=== PATIENT | male | born 1960 | race Caucasian/White ===

== ENCOUNTER 2022-05-07 08:56 | Outpatient (CLI) | payer OTHER, SELFPAY ==
--- NOTE | 2022-05-07 09:15 | CRLHL7_ITS ---
For Patients: As a result of the Cures Act, medical imaging exams and procedure reports are released immediately into your electronic medical record. You may view this report before your referring provider. If you have questions, please contact your health care provider. Indication: Reflux Technique: Esophagram Comparison: No comparison Findings: Patient was given thin and thick barium with effervescent granules which were followed fluoroscopically. Hypopharynx is clear. Esophagus appears normal. No mass lesion no stricturing. No hiatal hernia seen. Impression: Unremarkable esophagram. 25 seconds fluoro time 8 images obtained. Dictated by Elizabeth Scott MD @ 05/07/2022 10:13:28 AM (Electronically Signed)
== END 2022-05-07 08:57 | disposition home or self-care (01) ==
LOC: RAD 08:57
PROVIDERS: PCP Family Medicine; Visit Provider Internal Medicine Gastroenterology
DX: K21.9 Gastro-esophageal reflux disease without esophagitis (principal)
CPT/HCPCS: 74221

== ENCOUNTER 2022-05-23 08:00 | Outpatient (CLI) | payer OTHER, SELFPAY | END 2022-05-23 08:01 | disposition home or self-care (01) | LOC: NFLDREF 05-24 03:46 | PROVIDERS: PCP Family Medicine; Referring Provider Family Medicine; Visit Provider Family Medicine | DX: E78.5 Hyperlipidemia, unspecified (principal); Z12.5 Encounter for screening for malignant neoplasm of prostate | CPT/HCPCS: 80053; 80061; 84153 ==

== ENCOUNTER 2022-07-14 10:13 | Outpatient (CLI) | payer OTHER, SELFPAY ==
--- NOTE | 2022-07-14 11:07 | W.ANESCHARGE ---
Anesthesia Charges Start Date/Time Anesthesia Start Date: 07/14/22 Anesthesia Start Time: 10:52 Stop Date/Time Anesthesia Stop Date: 07/14/22 Anesthesia Stop Time: 11:10
--- NOTE | 2022-07-14 11:13 | W.ANESCHARGE ---
Anesthesia Charges Start Date/Time Anesthesia Start Date: 07/14/22 Anesthesia Start Time: 10:52 Stop Date/Time Anesthesia Stop Date: 07/14/22 Anesthesia Stop Time: 11:10
== END 2022-07-14 10:14 | disposition home or self-care (01) ==
LOC: OP CLINIC 10:14
PROVIDERS: PCP Family Medicine; Visit Provider Internal Medicine Gastroenterology
DX: J04.0 Acute laryngitis (principal); K31.89 Other diseases of stomach and duodenum; K21.9 Gastro-esophageal reflux disease without esophagitis; J02.9 Acute pharyngitis, unspecified
CPT/HCPCS: 00731; 43239; 88305; J2704

== ENCOUNTER 2023-06-01 08:05 | Outpatient (CLI) | payer OTHER, SELFPAY ==
--- OUTSIDE RECORDS SUMMARY | 2023-06-03 11:38 | XMS_ITS | Clinical Summary ---
Author Name Unknown Organization [facility] Address [address] [place] [address] Care Team Providers Care Communication Professor Name Role Phone Unavailable Primary Care Provider Unavailabl e Source Comments You are receiving this document as you are listed as the primary care provider,follow-up provider, or the patient has been referred to you for consultation.This is in compliance with the Medicare and[facility] Hospital[facility] EHR Incentive Program,which states Providers who transition their patient to another setting of careor provider of care or refers their patient to another provider of care shouldprovide summary care record for each transition of care or referral. [facility] Allergies No known active allergies Medications Medication Sig Dispensed Refills Start Date End Date Status atorvastatin (LIPITOR) 20 MG tablet Take 1 Tablet (20 mg) by mouth daily. 09/03/2022 Active sertraline (ZOLOFT) 100 MG tablet Take 1.5 Tablets (150 mg) by mouth daily. 11/03/2022 Active Melatonin 10 MG TABS Take 1 Tablet (10 mg) by mouth daily at bedtime. Active diphenhydrAMINE (BENADRYL) 25 MG capsule Take 1 Capsule (25 mg) by mouth at bedtime as needed for Sleep. Active carbidopa-levodop a (SINEMETCR) 50-200 MG controlled release tablet Take 1 Tablet by mouth daily at bedtime. 90 Tablet 3 05/11/2023 Active carbidopa-levodop a (SINEMET) 25-100 MG tablet Take 2 Tablets by mouth three times a day. 7a-12p-5p 540 Tablet 3 05/11/2023 Active carbidopa-levodop a (SINEMET) 25-100 MG tablet Take 2 Tablets by mouth three times a day. --05/11/2023 Discontinued (*Med change OR same med OR reorder, new dose/directi ons) carbidopa-levodop a (SINEMETCR) 50-200 MG controlled release tablet Take 1 Tablet by mouth daily at bedtime. 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 Encounters Date Type Department Care Team Description 05/11/2023 Refill [facility] [address] [place] [id number] Chary De Leon, RN Refill 04/22/2023 Notes/Orders [facility] [address] [place] [id number] Bethany Lujan, PT 03/25/2023 10:00 AM ENVIRONMENTAL QUALITY ANALYST Therapy [facility] [address] [place] [id number] Bethany Lujan, PT Parkinson's disease, unspecified whether dyskinesia present, unspecified whether manifestations fluctuate (Primary Dx); Hypokinesia; Abnormal posture from Last 3 Months Social History Tobacco Use Types Packs/Day Years Used Date Smoking Tobacco: Never Assessed Sex and Gender Information Value Date Recorded Sex Assigned at Not on file Gender Identity Not on file Sexual Orientation Not on file Last Filed Vital Signs Vital Sign Reading Time Taken Comments Blood Pressure 117/72 11/11/2022 3:13 PM CDT Pulse 67 11/11/2022 3:13 PM CDT Temperature - - Respiratory Rate - - Oxygen Saturation - - Inhaled Oxygen Concentration - - Weight 69.1 kg (152 lb 4.8 oz) 11/11/2022 3:10 P M CDT shoes on Height - - Body Mass Index - - Plan of Treatment Upcoming Encounters Date Type Department Care Team (Late st Contact Info) Description 06/09/2023 10:00 AM CDT Appointment [facility] [address] [place] [address] [place] [address] Bethany Lujan, PT [address] [place] [address] [place] [address] 12/10/2023 8:00 AM CDT Appointment [facility] [address] [place] [address] Vladimir Buckley MD [address] [place] [address] Health Maintenance Due Date Last Done Comments Colon Cancer Screening Plan Due 1960 Hep C Screening (Preventive Services) 1960 PSA Screening Discussion 1960 HIV Screening (Preventive Services) 1978 Adult Preventive Visit 1980 Cholesterol 1997 Zoster/Shingles (2 of 2) 01/30/2020 12/05/2019 COVID-19 Vaccine ( season) 2022 10/20/2021, 05/26/2021, 12/23/2020, Additional history exists Influenza (#1) 2022 12/02/2021, 10/11, 11/24/2019, Additional history exists DTaP/Tdap/Td (7 - Tdap) 07/18/2026 07/19/19 17, 11/20/1999, 07/24/1975, Additional history exists IPV (Polio) Completed 12/13/1976, 09/10, 07/24/1975, Additional history exists HepA Aged Out 08/17/2007 No longer eligi ble based on patient's age to complete this topic Pneumococcal Aged Out 12/28/2014, 11/23/1995 No lo nger eligible based on patient's age to complete this topic HepB Aged Out No longer eligi ble based on patient's age to complete this topic Hib Aged Out No longer eligi ble based on patient's age to complete this topic MCV4 Aged Out No longer eligi ble based on patient's age to complete this topic
--- OUTSIDE RECORDS SUMMARY | 2023-06-03 11:38 | XMS_ITS | Clinical Summary ---
Author Name Unknown Organization [facility] Address [place], [place] [address] Care Team Providers Care Ballistics Teacher Name Role Phone Scott Stokes MD Primary Care Provider [phone] Allergies No known active allergies Medications Medication Sig Dispensed Refills Start Date End Date Status atorvastatin (LIPITOR) 20 mg tablet Take 20 mg by mouth at bedtime. 02/04/2022 Active carbidopa-levodopa, 25-100 mg, (SINEMET 25-100) 25-100 mg tablet TAKE 3 TABLETS BY MOUTH THREE TIMES DAILY 12/29/2021 Active melatonin 5 mg tab tablet Take 10 mg by mouth. Active famotidine (PEPCID) 20 mg tablet Take 1 Tablet (20 mg) by mouth two times daily. 0 04/30/2022 Active Active Problems Problem Noted Date Diagnosed Date Routine adult health maintenance 07/20/2013 Overview: Colonoscopy 07/2013 normal repeat in 10 years Immunizations Name Administration Dates Next Due DTP 09/16/1967,04/27/1964 DTaP 07/24/1975,09/20/1971 Hepatitis A (Adult) 08/17/2007 Inactivated Polio Vaccine 12/13/1976,,07/24/1975,1971,09/16/1967,07/21/1963 Influenza, IIV3 (Age >=3 years) 11/17/2006,11/29,11/23/1995 MMR 05/15/1976,07/22/1972 Pneumococcal Poly,23-Valent (Pneumovax) 11/23/1995 Td (Age >=7 Years) 11/20/1999 Tuberculin (PPD) 12/01/1989,01/12/1967 Family History Medical History Relation Name Comments Cancer-prostate Father Diabetes Maternal Grandfather Heart Disease Maternal Grandfather Relation Name Status Comments Father Maternal Grandfather Social History Tobacco Use Types Packs/Day Years Used Date Smoking Tobacco: Former Tobacco Cessation:Counseling Given: Yes Alcohol Use Standard Drinks/Week Comments Yes 1.7 (1 standard drink = 0.6 oz p ure alcohol) 1 glass wine daily Social Connections Answer Date Recorded Frequency of Communication with Friends and Fami ly Not on file 04/30/2022 Sex and Gender Information Value Date Recorded Sex Assigned at Not on file Gender Identity Not on file Sexual Orientation Not on file Obstetrics History Last Filed Vital Signs Vital Sign Reading Time Taken Comments Blood Pressure 136/88 04/30/2022 1:41 PM CDT Pulse 86 04/30/2022 1:41 PM CDT Temperature 36.8 ??C (98.3 ??F) 11/24/2006 1:35 PM CD T Respiratory Rate - - Oxygen Saturation 98% 04/30/2022 1:41 PM CDT Inhaled Oxygen Concentration - - Weight 67.6 kg (149 lb) 04/30/2022 1:41 PM CDT Height 175.3 cm (5' 9) 11/24/2006 1:35 PM CDT Body Mass Index - - Plan of Treatment Health Maintenance Due Date Last Done Comments Tdap 1973 Depression screening for age 12+ 1974 HIV for age 15-65 1977 BMI (ht and wt on same day) for age 18+ 1980 Hepatitis C screening for ag e 18-79 1980 Tetanus booster 11/19/2009 11/20/1999 Lipids for age 45-75 11/04/2011 11/03/2006 Zoster (shingles) series for age 50+ (1 of 2) 2012 COVID-19 vaccine series ( - season) 2022 10/20/2021 Colonoscopy through age 75 07/21/202307/20, 07/20/2013 Influenza for age 50-64 10/11/2023 11/18/19 07, 11/29/1996, 11/23/1995 Pneumococcal series for age 6-64 Aged Out 11/23/1995 No longer eligible b ased on patient's age to complete this topic Procedures Procedure Name Priority Date/Time Associated Diagnosis Comments LIPID PANEL Routine 11/03/2006 9:01 AM CDT Hyperlipidemia Mixed from Last 3 Months or Most Recently Relevant to Health Maintenance Results * (ABNORMAL) LIPID PANEL (11/03/2006 9:01 AM CDT) CHOLESTEROL,TOTAL 207(H) 110 - 199 mg/dL [facility] TRIGLYCERIDES 83 <150 mg/dL [facility] HDL CHOLESTEROL 63 >40 mg/dL [facility] CHOL/HDL RATIO 3.29 <4.51 [facility] LDL CHOLESTEROL 127 <131 mg/dL [facility] PATIENT STATUS Fasting [facility] Blood specimen (specimen) BLOOD SPECIMEN / Unknown 11/03/2006 9:01 AM CDT 11/03/2006 8:56 AM CDT Luis Miguel Roman MD CHEMISTRY [facility] [address] [place] [address] from Last 3 Months or Most Recently Relevant to Health Maintenance Care Teams Ballistics Teacher Relationship Specialty Start Date End Date Scott Stokes MD [address] [place] [address] PCP - General Family Practice 04/30/22
--- OUTSIDE RECORDS SUMMARY | 2023-06-03 11:38 | XMS_ITS | Encounter Summary ---
Author Name Unknown Organization [facility] Address [address], [place] [address] Care Team Providers Care Carpenter Assembler Name Role Phone Unavailable Primary Care Provider Unavailabl e Encounter Details Date Type Department Care Team ([facility] st Contact Info) Description 04/22/2023 Notes/Orders [facility] [address] [place], [place] [address] Bethany Lujan PT [address] [place], [place] [id number] Social History Tobacco Use Types Packs/Day Years Used Date Smoking Tobacco: Never Assessed Sex and Gender Information Value Date Recorded Sex Assigned at Not on file Gender Identity Not on file Sexual Orientation Not on file documented as of this encounter Progress Notes * Bethany Lujan PT - 04/22/2023 7:18 PM CDT Encounter Date: 04/22/2023 Pt : 1960 [facility] Physical Therapy Discharge Summary Patient was evaluated on 11/11/2022 and a treatment plan for further care was established. Pt attended 4 of 4-5 recommended visits. There are no further visits scheduled at this time and patient is currently considered discharged from therapy. Will need new orders from physician in order to return to therapy as current plan of care has now . Standardized test results and goal achievement: Please refer to the initial evaluation for any standardized tests performed as well as the planned goals of therapy treatment. Unable to provide follow up test results as patient did not return to reassess. Episode/Discharging Therapist: Bethany Lujan PT [place] License # [id number] documented in this encounter Plan of Treatment Upcoming Encounters Date Type Department Care Team (Late st Contact Info) Description 06/09/2023 10:00 AM CDT Appointment [facility] [address] [facility] [place] [address] Bethany Lujan, PT [address] [facility] [place] [address] 12/10/2023 8:00 AM CDT Appointment [facility] [address] [place] [address] Vladimir Buckley MD [address] [place], [place] [id number] documented as of this encounter Visit Diagnoses Not on filedocumented in this encounter
--- OUTSIDE RECORDS SUMMARY | 2023-06-03 11:39 | XMS_ITS | Encounter Summary ---
Author Name Unknown Organization [facility] Address [address], [place] [address] Care Team Providers Care Marketing Sales Supervisor Name Role Phone Unavailable Primary Care Provider Unavailabl e Reason for Visit * Reason Comments Balance/gait Dysfunction Encounter Details Date Type Department Care Team (Late st Contact Info) Description 03/25/2023 10:00 AM VP HUMAN RESOURCES Therapy [facility] [address] [place] [id number] Bethany Lujan, PT [address] [place] [address] Parkinson's disease, unspecified whether dyskinesia present, unspecified whether manifestations fluctuate (Primary Dx); Hypokinesia; Abnormal posture Social History Tobacco Use Types Packs/Day Years Used Date Smoking Tobacco: Never Assessed Sex and Gender Information Value Date Recorded Sex Assigned at Not on file Gender Identity Not on file Sexual Orientation Not on file documented as of this encounter Progress Notes * Bethany Lujan, PT - 03/25/2023 10:00 AM CST Physical Therapy Progress Note Time of Day: 10:00 Visit: 4 of 5 scheduled (4-5 recommended) Referring MD: Dr. Vladimir Buckley [facility] Plan of Care Dates: 11/11/2022 to 02/09/23 to 05/11/23 Subjective: -Changes reported since last visit: has been running - hams remain feeling tight but no longer painful and they don't loosen up. But can run for 45 minutes. The acute pain has gone away though. His biggest complaint is brain fog. -Falls reported since last visit/circumstances: no falls -Pain: hamstring soreness - also some pain at the base of his right thumb and occasional electric shocks on volar wrist surface (pinpoints carpal tunnel), somewhat longstanding but currently exacerbated mildly to moderately -Report of HEP: running some days; weights some days; 3rd day does PWR moves at home, chin if cold outside. Also has a rowing machine - rotates for variety (excellent!). -Last medication dose: this morning -Motor Level: ON Objective: -Mood: Pleasant. Cooperative. -Orientation: Alert. -Cooperation: Good. -Communication: Clear. -Support system present: Self Treatment Today: Therapeutic exercise: - Instructed & performed hamstring stretches: Had pt demo his typical technique - uses long lever Instructed/educated re: rationale and difference, recommend short lever stretch instead, had pt perform in sitting, in long sitting, B x 30 @ Neuromuscular Re-education: - Reviewed and performed PWR! moves including education regarding the background and purpose: Pt feels he is managing the moves without concerns or questions - Instructed & performed all 4 PWR! Moves moves in standing with TBAND for feedback and strength Cues for wide MARIO ALBERTO during ROCK and STEP and GET READY recommended adding this into the mix of his exercise regimen - Issued dark green Tband - Instructed & performed plantar pressure-focused balance activity at rail ([employer] concepts): Ankle sways A/P x 10 diagonal sways - fwd R,L, then back R, back L - Instructed & performed fwd drift into forward reactive step Cues, practice to maintain wide MARIO ALBERTO at all times - Issued written instructions to perform balance work and fwd [reactive] step at home Also issued Level flyer from [facility] balance class starting in May Gait training: - -Skilled teaching: Fall prevention. Activity recommendations. Home exercise program: demonstration, issued written materials, updated with exercises performed today. Current HEP: PWR! Moves prone, STANDING, standing with Tband, and quadruped; prone oppositional UE/LE strength lifts; ham curls (equipment); Byers walking if he procures correct poles. Assessment -Impairments addressed at today's session: Bradykinesia. Dystonia. Hypokinesia. Knowledge deficit. Muscle rigidity. Postural deviation. -Functional outcomes addressed during treatment session today and progress toward goals: Pt agreeable to all therapy treatments today. This patient is performing at a high level, addition of Tband to Pwr moves today a nice addition. Worked into Britt Ji concepts to fine tune balance and MARIO ALBERTO - forward direction was hardest to added fwd reactive step to HEP. Also discussed importance of high quality sleep for brain health, gave a couple resources. Byers walking a nice addition to his walking program, poles caused increased upper body movement and helped with posture alignment and symmetry - if he chooses. He is back to jogging without ham pain, just tightness, so resumed stretching. Though he feels if he focused on longer strides his ham pain might come back. Would refer to sports med if that occurs. Will continue to address hypokinesia, bradykinesia, balance deficits, gait abnormalities, and creation of maintainable and tailored HEP in following sessions. The above treatments are medically necessary to meet patient's goals and decrease his future risk of falls. Plan Next Session: Review and perform PWR! Moves standing with Tband; ham stretches; britt Ji balanceand work into posterior reactions. Could look at jogging on treadmill but if hamstring pain returns recommend sports medicine therapist. Procedures: Therapeutic Exercise (CPT 33613) 10 minutes. Neuromuscular Re-education (CPT 68173) 45 minutes. Therapeutic Activities (CPT 21509) 0 minutes. Gait Training (CPT 40796) 0 minutes. Total Treatment Time: 55 minutes Therapist: Bethany Lujan PT [place] License # [id number] Goals Set at Evaluation: Patient/Carepartner to verbalize understanding of physical therapy recommendations in 4-5 visits. Patient to demonstrate independence of home exercise program with updates/progression as indicated in 4-5 visits. Patient will demonstrate normal posterior balance reaction during reactive control testing within 4-5 visits. Pt will be able to look over R shoulder without veering, dizziness, or loss of balance while walking within 4-5 visits. Optional: Patient will demonstrate independent Byers walking initiation and proper technique within 4-5 visits. HUMAN RESOURCES documented in this encounter Plan of Treatment Upcoming Encounters Date Type Department Care Team (Late st Contact Info) Description 06/09/2023 10:00 AM CDT Appointment [facility] [address] [place] [address] Bethany Lujan PT [address] [place] [id number] 12/10/2023 8:00 AM CDT Appointment [facility] [address] [place] [address] Vladimir Buckley MD [address] [place] [address] documented as of this encounter Visit Diagnoses Diagnosis Parkinson's disease, unspecified whether dyskinesia present, unspecified whether manifestations fluctuate ([facility])- Primary Hypokinesia Other general symptoms Abnormal posture documented in this encounter
--- OUTSIDE RECORDS SUMMARY | 2023-06-03 11:39 | XMS_ITS | Encounter Summary ---
Author Name Unknown Organization [facility] Address [address] [address] Care Team Providers Care Soldering Inspector Name Role Phone Unavailable Primary Care Provider Unavailabl e Reason for Visit * Reason Comments Balance/gait Dysfunction Encounter Details Date Type Department Care Team (Late st Contact Info) Description 02/25/2023 10:00 AM NON GARMENT SEWING MACHINE OPERATOR Therapy [facility] [address] [place] [address] Bethany Lujan, PT [address] [place] [address] Parkinson's disease, unspecified whether dyskinesia present, unspecified whether manifestations fluctuate (Primary Dx); Hypokinesia; Abnormal posture Social History Tobacco Use Types Packs/Day Years Used Date Smoking Tobacco: Never Assessed Sex and Gender Information Value Date Recorded Sex Assigned at Not on file Gender Identity Not on file Sexual Orientation Not on file documented as of this encounter Progress Notes * Bethany Lujan, PT - 02/25/2023 10:00 AM CST Physical Therapy Progress Note Time of Day: 10:00 Visit: 3 of 3 scheduled (4-5 recommended) Referring MD: Dr. Vladimir Buckley [facility] Plan of Care Dates: 11/11/2022 to 02/09/23 to 05/11/23 Subjective: -Changes reported since last visit: He has been doing quite well, staying very active and feeling good. Hamstring pain is less but has become bilateral. -Falls reported since last visit/circumstances: none -Pain: hamstring soreness - also some pain at the base of his right thumb, (questionable tenosynovitis), somewhat longstanding but currently exacerbated mildly to moderately -Report of HEP: practices his PWR moves I like them often. Hasn't been running due to cold weather. Went snowshoeing too. And rowing machine x 30 min. Has access to rec center at [facility] too. Focuses on strength for his back. newly focusing more on extension strength: working some strength exercises on machines - reverse flys; lat pulldowns; some chest work; rowing; rotation. Discussed and advised carefully adding hamstring curls to this regimen. -Last medication dose: Not documented -Motor Level: ON Objective: -Mood: Pleasant. Cooperative. -Orientation: Alert. -Cooperation: Good. -Communication: Clear. -Support system present: Self Treatment Today: Therapeutic exercise: - reviewed and performed prone oppositional UE/LE strength lifts briefly - good technique. - described, discussed adding ham curls to his HEP - low wts hi reps to start, qod, Getting fatigued at [address] to start - pt verbalized understanding and is familiar with ham curls wt machine where he exercises. Neuromuscular Re-education: - Reviewed and performed PWR! moves including education regarding the background and purpose: - Reviewed and performed all 4 basic PWR! Moves PRONE: Cues to add increased back mm activation and strength during both up and step, pulling his body up instead of just pushing through his arms More extensive cues during prone rock, cues to keep toes on floor, push more firmly, and left hip and knee off the ground during the reach - Reviewed and performed all for basic PWR! Moves quadruped: Cues for wider base of support between knees, and to use more momentum coming out of the twist from1 side to the other, otherwise very good technique. Again able to move through preparation, into activation and flow. - Instructed & performed all 4 PWR! Moves moves in standing, recommended adding this into the mix of his exercise regimen Gait training: -Instructed pt in use of [place] Walking Poles with Urban Michaela Activators, with boot tips: Educated pt on benefits of pole use, including increased arm swing, improved posture and stability on uneven terrain; therapist demonstrated proper use of poles, including placement and reciprocal pattern. Started with brief drills for fence manufacture supervisor, UE positioning. Patient with quick uptake of correct coordination and reported comfort with use of poles. Trunk appeared more symmetric as well. PT observed improved bilateral arm swing activation, increased trunk extension, slight improvementsin axial rotation, and overall continued maintenance of long bilateral strides. Patient interested in possible obtainment of poles, provided with resources for online purchase if interested at later date. Recommend boot tips and production helper with pinky shelf. -Skilled teaching: Fall prevention. Activity recommendations. Home exercise program: demonstration, issued written materials, updated with exercises performed today. Current HEP: PWR! Moves prone, STANDING, and quadruped; prone oppositional UE/LE strength lifts; ham curls (equipment); [place] walking if he procures correct poles. Assessment -Impairments addressed at today's session: Bradykinesia. Dystonia. Hypokinesia. Knowledge deficit. Muscle rigidity. Postural deviation. -Functional outcomes addressed during treatment session today and progress toward goals: Pt agreeable to all therapy treatments today. This patient is performing at a high level, but subtle hypokinesia deficits became more apparent during PWR! Moves exercises, and tendency for very narrow MARIO ALBERTO. He did extremely well learning and performing PWR! Moves, and video links will help him to learn more position and the consistent with practice. Mild truncal asymmetry appeared to be improved; can further address as needed. [place] walking a nice addition to his walking program, poles caused increased upper body movement and helped with posture alignment and symmetry. Will continue to address hypokinesia, bradykinesia, balance deficits, gait abnormalities, and creation of maintainable and tailored HEP in following sessions. The above treatments are medically necessary to meet patient's goals and decrease his future risk of falls. Plan Next Session: Review and perform PWR! Moves; introduce additional PWR! Moves positions and look at gait both walking and jogging, perhaps on treadmill, if hamstring pain is gone. Address trunk asymmetry additionally as needed. Procedures: Therapeutic Exercise (CPT 24429) 5 minutes. Neuromuscular Re-education (CPT 70553) 35 minutes. Therapeutic Activities (CPT 26925) 0 minutes. Gait Training (CPT 98966) 15 minutes. Total Treatment Time: 55 minutes Therapist: Bethany Lujan PT [place] License # [id number] Goals Set at Evaluation: Patient/Carepartner to verbalize understanding of physical therapy recommendations in 4 visits. Patient to demonstrate independence of home exercise program with updates/progression as indicated in 4 visits. Patient will demonstrate normal posterior balance reaction during reactive control testing within 4visits. Pt will be able to look over R shoulder without veering, dizziness, or loss of balance while walking within 4 visits. Optional: Patient will demonstrate independent [place] walking initiation and proper technique within 4 visits. GARMENT SEWING MACHINE OPERATOR documented in this encounter Plan of Treatment Upcoming Encounters Date Type Department Care Team (Late st Contact Info) Description 06/09/2023 10:00 AM CDT Appointment [facility] [address] [place] [id number] Bethany Lujan, PT [address] [place] [address] 12/10/2023 8:00 AM CDT Appointment [facility] [address] [place] [phone] Vladimir Buckley MD [address] [place], [place] [address] documented as of this encounter Visit Diagnoses Diagnosis Parkinson's disease, unspecified whether dyskinesia present, unspecified whether manifestations fluctuate (HRC)- Primary Hypokinesia Other general symptoms Abnormal posture documented in this encounter
== END 2023-06-01 08:06 | disposition home or self-care (01) ==
LOC: NFLDREF 06-03 11:30
PROVIDERS: PCP Family Medicine; Referring Provider Family Medicine; Visit Provider Family Medicine
DX: E78.5 Hyperlipidemia, unspecified (principal); Z12.5 Encounter for screening for malignant neoplasm of prostate
CPT/HCPCS: 80053; 80061; G0103

== ENCOUNTER 2023-07-02 08:49 | Outpatient (CLI) | payer OTHER, SELFPAY ==
--- OUTSIDE RECORDS SUMMARY | 2023-07-02 08:52 | XMS_ITS | Encounter Summary ---
Author Organization [facility] Address [address] [place] [address] Care Team Providers Care Putaway Driver Name Role Phone Unavailable Primary Care Provider Unavailabl e Reason for Visit * Reason Comments Refill Encounter Details Date Type Department Care Team (Late st Contact Info) Description 05/11/2023 Refill [facility] [address] [place], [place] [phone] Chary De Leon, RN Refill Social History Tobacco Use Types Packs/Day Years Used Date Smoking Tobacco: Never Assessed Sex and Gender Information Value Date Recorded Sex Assigned at Not on file Gender Identity Not on file Sexual Orientation Not on file documented as of this encounter Nursing Notes * Chary De Leon, RN - 05/11/2023 4:18 PM CDT Patient seen in November, no follow up scheduled yet but will send to it help desk technician when done. He needs refills on medication previously prescribed by former neurologist. Please sign. documented in this encounter Plan of Treatment Upcoming Encounters Date Type Department Care Team (Late st Contact Info) Description 12/10/2023 8:00 AM CDT Appointment [facility] [address] [place], [place] [phone] Vladimir Buckley MD [address] [place], [place] [phone] documented as of this encounter Visit Diagnoses Not on filedocumented in this encounter
--- OUTSIDE RECORDS SUMMARY | 2023-07-02 08:52 | XMS_ITS | Clinical Summary ---
Author Organization [facility] Address [address] [address] Care Team Providers Care Motel Food Service Supervisor Name Role Phone Unavailable Primary Care Provider Unavailabl e Source Comments You are receiving this document as you are listed as the primary care provider,follow-up provider, or the patient has been referred to you for consultation.This is in compliance with the Medicare andHol[facility] Health Systemcaid EHR Incentive Program,which states Providers who transition their patient to another setting of careor provider of care or refers their patient to another provider of care shouldprovide summary care record for each transition of care or referral. [employer] Allergies No known active allergies Medications Medication [...] at bedtime as needed for Sleep. Active carbidopa-levodopa (SINEMETCR) 50-200 MG controlled release tablet Take 1 Tablet by mouth daily at bedtime. 90 Tablet 3 05/11/2023 Active carbidopa-levodopa (SINEMET) 25-100 MG tablet Take 2 Tablets by mouth three times a day. 7a-12p-5p 540 Tablet 3 05/11/2023 Active Active Problems Problem Noted Date Diagnosed Date Parkinson's disease 11/11/2022 RBD (REM behavioral disorder) 11/11/2022 Encounters Date Type Department Care Team Description 06/09/2023 10:00 AM CDT Therapy [facility] [address] [place] [address] Bethany Lujan, PT Parkinson's disease, unspecified whether dyskinesia present, unspecified whether manifestations fluctuate (HRC) (Primary Dx); Hypokinesia; Abnormal posture 05/11/2023 Refill [facility] [address] [place] [address] Chary De Leon, RN Refill 04/22/2023 Notes/Orders [facility] [address] [place] [address] Bethany Lujan, PT from Last 3 Months Social History Tobacco [...] Info) Description 12/10/2023 8:00 AM CDT Appointment [facility] [address] [place] [address] Vladimir Buckley MD [address] [place] [address] Health Maintenance Due Date Last Done Comments Colon Cancer Screening Plan Due 1960 Hep C Screening (Preventive Services) 1960 PSA Screening Discussion 1960 HIV Screening (Preventive Services) 1978 Adult Preventive Visit 1980 Cholesterol 1997 Zoster/Shingles (2 of 2) 01/30/2020 12/05/2019 COVID-19 Vaccine ( season) 2022 10/20/2021, 05/26/2021, 12/23/2020, Additional history exists Influenza (Season Ended) 2023 022, 10/30/2020, 11/24/2019, Additional history exists DTaP/Tdap/Td (7 - [...]
--- OUTSIDE RECORDS SUMMARY | 2023-07-02 08:52 | XMS_ITS | Clinical Summary ---
Author Organization [facility] Address [place], [place] [address] Care Team Providers Care Joist Setter Name Role Phone Scott Stokes MD Primary Care Provider [phone] Allergies No known active allergies Medications Medication [...] of 2) 2012 COVID-19 vaccine series ( season) 2022 10/20/2021 Colonoscopy through age 77 [...] CDT) CHOLESTEROL,TOTAL 207(H) 110 - 199 mg/dL [facility] TRIGLYCERIDES 83 <150 mg/dL [facility] HDL CHOLESTEROL 63 >40 mg/dL [facility] CHOL/HDL RATIO 3.29 <4.51 [facility] LDL CHOLESTEROL 127 <131 mg/dL [facility] PATIENT STATUS Fasting [facility] Blood specimen (specimen) BLOOD SPECIMEN / Unknown 11/03/2006 9:01 AM CDT 11/03/2006 8:56 AM CDT Luis Miguel Roman MD CHEMISTRY [facility] [address] [place] [address] from Last 3 Months or Most Recently Relevant to Health Maintenance Care Teams Joist Setter Relationship Specialty Start Date End Date Scott Stokes MD [address] [place] [phone] PCP - General Family Practice 04/30/22
--- OUTSIDE RECORDS SUMMARY | 2023-07-02 08:52 | XMS_ITS | Encounter Summary ---
Author Organization [email or web address] Address [address] [place] [address] Care Team Providers Care Trading Manager Name Role Phone Unavailable Primary Care Provider Unavailabl e Encounter Details Date Type Department Care Team (Late st Contact Info) Description 04/22/2023 Notes/Orders [facility] [address] [place] [place], [place] [phone] Bethany Lujan, PT [address] [place], [place] [phone] Social History Tobacco Use Types Packs/Day Years Used Date Smoking Tobacco: Never Assessed Sex and Gender Information Value Date Recorded Sex Assigned at Not on file Gender Identity Not on file Sexual Orientation Not on file documented as of this encounter Plan of Treatment Upcoming Encounters Date Type Department Care Team (Late st Contact Info) Description 12/10/2023 8:00 AM CDT Appointment [facility] [address] [place], [place] [phone] Vladimir Buckley MD [address] [place], [place] [phone] documented as of this encounter Visit Diagnoses Not on filedocumented in this encounter
--- OUTSIDE RECORDS SUMMARY | 2023-07-02 08:52 | XMS_ITS | Encounter Summary ---
Author Organization [facility] Address [address] [place] [address] Care Team Providers Care Extractor Puller Name Role Phone Unavailable Primary Care Provider Unavailabl e Reason for Visit * Reason Comments Balance/gait Dysfunction Encounter Details Date Type Department Care Team (Late st Contact Info) Description 06/09/2023 10:00 AM CDT Therapy [facility] [address] [place] [phone] Bethany Lujan, PT [address] [place] [address] Parkinson's disease, unspecified whether dyskinesia present, unspecified whether manifestations fluctuate (HRC) (Primary Dx); Hypokinesia; Abnormal posture Social History Tobacco Use Types Packs/Day Years Used Date Smoking Tobacco: Never Assessed Sex and Gender Information Value Date Recorded Sex Assigned at Not on file Gender Identity Not on file Sexual Orientation Not on file documented as of this encounter Progress Notes * Bethany Lujan, PT - 06/09/2023 10:00 AM CDT Re-certification of POC; Physical Therapy Progress Note Time of Day: 10:00 Visit: 5 of 5 scheduled (5 recommended) - requesting recertification due to continuation of plan ofcare for 5th visit outside initial 90 day certification period. Updated status and Goals are below.Patient will be discharged today. Referring MD: Dr. Vladimir Buckley Insurance Provider: [employer] Approved Plan of Care Dates: 11/11/2022 to 02/09/23 to 05/11/23 re-certification dates 05/12/23 - 08/09/2023 Subjective: -Changes reported since last visit: has been good - has been running at least q week or more, weather permitting. Still has some brain fog - comes and goes chin with transitions, such as moving intoa room with a lot of people, or from indoors to outdoors or vice versa. Like he's watching himself from a distance. One thing really good: uses skills trainer at [facility], learning how to lift weights the rightway. Working out 5-6 days/week on some way or another. Still min pain in hams with running - does leg curls - Also: is it from C/L? - gets fuzzy feeling, maybe wearing off, worse if he doesn't exercise - RLS?Whole body. Worse if he misses a dose, maybe, not consistent enough to be sure. Exercise keeps it at bay. -Falls reported since last visit/circumstances: no falls -Pain: hamstring soreness - also some pain at the base of his right thumb and occasional electric shocks on volar wrist surface (pinpoints carpal tunnel), somewhat longstanding - wearing splint -Report of HEP: running some days; weights some days; 3rd day does PWR moves at home, chin if cold outside. Also has a rowing machine - rotates for variety (excellent!). -Last medication dose: this morning -Motor Level: ON Objective: -Mood: Pleasant. Cooperative. -Orientation: Alert. -Cooperation: Good. -Communication: Clear. -Support system present: Self Treatment Today: Therapeutic exercise: - Reviewed & performed hamstring stretches: Had pt demo his typical technique - uses long lever Instructed/educated re: rationale and difference, recommend short lever stretch instead, had pt perform in sitting, in long sitting, B x 30 @ Neuromuscular Re-education: - Reviewed and performed standing PWR! moves - added Tband - including education regarding the background and purpose: Pt feels he is managing the moves without concerns or questions - Instructed & performed all 4 PWR! Moves moves in standing with TBAND for feedback and strength He had been rock into single leg stance, also this helped slow the patient down Focused on control and balance during ???get ready?? position, mind body connection as essential for effective technique recommended adding this into the mix of his exercise regimen - Issued dark green Tband - Reviewed and performed plantar pressure-focused balance activity into stepping Reviewed forward step Reviewed sidestep, cues to be on tiptoe on ipsilateral stepping side - Instructed & performed same technique for back stepping and balance recovery Some tendency to step backward with very narrow base, almost crossing midline Worked technique toward 5:00 and 7:00 with right and left foot, respectively Patient cuing himself to keep wide base of support, very good - Issued written instructions to perform balance work and backward, sideways reactive stepping - after re-testing (below), discussed turning and proper initiation of turns. Patient 1st turning test he initiated his left turn with his right foot, he was very perceptive of this in himself and corrected without cues for a 2nd test. Discussed this tendency and its implications, some mindfulness of this especially after prolonged standing. Patient verbalized understanding. TU.34 sec (11 steps) Dual TU.45 sec (12 steps) FTSST: 8.0 sec, without UE's; without LOB 30 sec SST: 21 stands 360 Turn Right: 3.28 seconds, 6-7 steps 360 Turn Left: 3.45 seconds, 6-7 steps Gait, 6 meter walk: 3.9 seconds; (7 steps) = 1.54 m/s -Skilled teaching: Fall prevention. Activity recommendations. Home exercise program: demonstration, issued written materials, updated with exercises performed today. Current HEP: PWR! Moves prone, STANDING, standing with Tband, and quadruped; prone oppositional UE/LE strength lifts; ham curls (equipment); [place] walking if he procures correct poles. Continue working with skills trainer. Assessment -Impairments addressed at today's session: Bradykinesia. Dystonia. Hypokinesia. Knowledge deficit. Muscle rigidity. Postural deviation. -Functional outcomes addressed during treatment session today and progress toward goals: Pt agreeable to all therapy treatments today. This patient is performing at a high level, addition of Tband to Pwr moves today a nice addition. Worked into Jesús Ji concepts to fine tune balance and MARIO ALBERTO - patient maintaining a wider base of support and able to add backward stepping to his regimen. [place] walking a nice addition to his walking program, poles caused increased upper body movement and helped with posture alignment and symmetry - if he chooses. He is back to jogging without ham pain, just tightness, so resumed stretching. Though he feels if he focused on longer strides his ham pain might come back. Would refer to sports med if that occurs. The above treatments are medically necessary to meet patient's goals and decrease his future risk of falls. Procedures: Therapeutic Exercise (CPT 12637) 10 minutes. Neuromuscular Re-education (CPT 64567) 45 minutes. Therapeutic Activities (CPT 24660) 0 minutes. Gait Training (CPT 46673) 0 minutes. Total Treatment Time: 55 minutes [...] 4-5 visits. Optional: Patient will demonstrate independent [place] walking initiation and proper technique within 4-5 visits. * Bethany Lujan PT - 06/09/2023 10:00 AM CDT Encounter Date: 06/09/2023 Pt : 1960 [facility] Physical Therapy Discharge Summary Patient was seen for therapy from 11/11/2022 to 06/09/2023. Patient was seen for 5 of 5 recommended visits. Patient was compliant with attendance and therapy recommendations. Outcome measures at discharge: TEST Evaluation 11/11/2022 Discharge 06/11/2023 Comments TUG 7.83 sec (10 steps) no device 8.34 sec (11 steps); no device Pt was trying to hurry on ev day TUG - Cog 8.45 sec (12) 9.45 sec (12) 5x STS 8.8 sec, no UE's, 3x post LOB 8.0 sec, no UE's, no LOB 30 sit<>stand 19 stands 21 stands Gait Speed 1.2 m/s with no AD 1.54 m/s with no AD 360 turn R 2.45 sec (6 steps; initated R) 3.28 sec (6-7 steps; initated R) 360 turn L 2.50 sec (7 steps; initated L) 3.45 sec (6 steps; initated L) Cued pt not to barrow on DC testing Attainment of goals: The following is a review of the therapy goals: Patient/Carepartner to verbalize understanding of physical therapy [...] 4-5 visits. Optional: Patient will demonstrate independent [place] walking initiation and proper technique within 4-5 visits. Reason for Discharge: Patient has met his therapy goals or therapist expects patient to meet goals through home program. Discharge recommendations: Patient will continue to work independently with home program/self management strategies. Therapist instructed patient to call with questions or concerns. Patient to return to therapy if symptoms recur. Patient recommended to return in 6-12 months for PT reassessment. documented in this encounter Plan of Treatment Upcoming Encounters Date Type Department Care Team (Late st Contact Info) Description 12/10/2023 8:00 AM CDT Appointment [facility] [address] [place] [phone] Vladimir Buckley MD [address] [place] [address] documented as of this encounter Visit Diagnoses Diagnosis Parkinson's disease, unspecified whether dyskinesia present, unspecified whether manifestations fluctuate (HRC)- Primary Hypokinesia Other general symptoms Abnormal posture documented in this encounter
--- OUTSIDE RECORDS SUMMARY | 2023-07-02 08:53 | XMS_ITS | Encounter Summary ---
Author Organization [facility] Address [address] [place] [address] Care Team Providers Care Sr. Payroll Processor Name Role Phone Unavailable Primary Care Provider Unavailabl e Reason for Visit * Reason Comments Balance/gait Dysfunction Encounter Details Date Type Department Care Team (Late st Contact Info) Description 03/25/2023 10:00 AM PRESCHOOL EDUCATION DIRECTOR Therapy [facility] [address] [place] [id number] Bethany Lujan, PT [address] [place] [id number] Parkinson's disease, unspecified whether dyskinesia present, unspecified [...] Referring MD: Dr. Vladimir Buckley Insurance Provider: [facility] Approved Plan of Care Dates: 11/11/2022 to [...] performed plantar pressure-focused balance activity at rail (Right Hemisphere concepts): Ankle sways A/P x 10 diagonal sways - fwd R,L, then back R, back L - Instructed & performed fwd drift into forward reactive step Cues, practice to maintain wide MARIO ALBERTO at all times - Issued written instructions to perform balance work and fwd [reactive] step at home Also issued [place] flyer from [place] balance class starting in May Gait training: - -Skilled teaching: Fall prevention. Activity recommendations. Home exercise program: demonstration, issued written materials, updated with exercises performed today. Current HEP: PWR! Moves prone, STANDING, standing with Tband, and quadruped; prone oppositional UE/LE strength lifts; ham curls (equipment); Acorn walking if he procures correct poles. Assessment [...] for brain health, gave a couple resources. Acorn walking a nice addition to his walking [...] sports medicine therapist. Procedures: Therapeutic Exercise (CPT 91529) 10 minutes. Neuromuscular Re-education (CPT 16990) 45 minutes. Therapeutic Activities (CPT 63904) 0 minutes. Gait Training (CPT 68481) 0 minutes. Total Treatment Time: 55 minutes [...] 4-5 visits. Optional: Patient will demonstrate independent Acorn walking initiation and proper technique within 4-5 visits. CHOOL EDUCATION DIRECTOR documented in this encounter Plan of Treatment Upcoming Encounters Date Type Department Care Team (Late st Contact Info) Description 12/10/2023 8:00 AM CDT Appointment [facility] [address] [place] [id number] [place] [address] [place] [address] documented as of this encounter Visit Diagnoses Diagnosis Parkinson's disease, unspecified whether dyskinesia present, unspecified whether manifestations fluctuate (HRC)- Primary Hypokinesia Other general symptoms Abnormal posture documented in this encounter
--- NOTE | 2023-07-02 10:14 | W.ANESCHARGE ---
Anesthesia Charges Start Date/Time Anesthesia Start Date: 07/02/23 Anesthesia Start Time: 09:24 Stop Date/Time Anesthesia Stop Date: 07/02/23 Anesthesia Stop Time: 10:11
--- NOTE | 2023-07-02 11:00 | W.ANESCHARGE ---
Anesthesia Charges Start Date/Time Anesthesia Start Date: 07/02/23 Anesthesia Start Time: 09:24 Stop Date/Time Anesthesia Stop Date: 07/02/23 Anesthesia Stop Time: 10:11
== END 2023-07-02 08:50 | disposition home or self-care (01) ==
LOC: OP CLINIC 08:50
PROVIDERS: PCP Family Medicine; Visit Provider Surgery
DX: Z12.11 Encounter for screening for malignant neoplasm of colon (principal); K63.5 Polyp of colon; K64.9 Unspecified hemorrhoids
CPT/HCPCS: 00811; 45385; 88305; J2704

== ENCOUNTER 2023-12-10 14:48 | Outpatient (CLI) | payer OTHER, SELFPAY ==
--- OUTSIDE RECORDS SUMMARY | 2023-12-10 14:52 | XMS_ITS | Clinical Summary ---
Author Organization [facility] Address [address], [place] [address] Care Team Providers Care Handbag Framer Name Role Phone Unavailable Primary Care Provider Unavailabl e Source Comments You are receiving this document as you are listed as the primary care provider,follow-up provider, or the patient has been referred to you for consultation.This is in compliance with the Medicare and[facility] EHR Incentive Program,which states Providers who transition their patient to another setting of careor provider of care or refers their patient to another provider of care shouldprovide summary care record for each transition of care or referral. SurgeonKidz Allergies No known active allergies Medications Medication Sig Dispensed Refills Start Date End Date Status atorvastatin (LIPITOR) 20 MG tablet Take 1 Tablet (20 mg) by mouth daily. 09/03/2022 Active sertraline (ZOLOFT) 100 MG tablet Take 1.5 Tablets (150 mg) by mouth daily. 11/03/2022 Active Melatonin 10 MG TABS Take 1 Tablet (10 mg) by mouth daily at bedtime. Active carbidopa-levodo pa (SINEMET) 25-100 MG tablet Take 2 Tablets by mouth three times a day. 7a-12p-5p 540 Tablet 3 12/10/2023 Active carbidopa-levodo pa (SINEMETCR) 50-200 MG controlled release tablet Take 1 Tablet by mouth daily at bedtime. 90 Tablet 3 12/10/2023 Active diphenhydrAMINE (BENADRYL) 25 MG capsule Take 1 Capsule (25 mg) by mouth at bedtime as needed for Sleep. Discontinued carbidopa-levodo pa (SINEMETCR) 50-200 MG controlled release tablet Take 1 Tablet by mouth daily at bedtime. 90 Tablet 3 05/11/2023 4 Discontinued(*Med change OR same med OR reorder, new dose/directions) carbidopa-levodo pa (SINEMET) 25-100 MG tablet Take 2 Tablets by mouth three times a day. 7a-12p-5p 540 Tablet 3 05/11/2023 4 Discontinued(*Med change OR same med OR reorder, new dose/directions) Active Problems Problem Noted Date Diagnosed Date Paresthesia of skin 12/10/2023 Parkinson's disease 11/11/2022 RBD (REM behavioral disorder) 11/11/2022 Encounters Date Type Department Care Team Description 12/10/2023 8:00 AM CDT Office Visit [facility] [place] [address] Vladimir Buckley MD Parkinson's disease without dyskinesia or fluctuating manifestations (HRC) (Primary Dx); RBD (REM behavioral disorder); Paresthesia of skin; Myalgia from Last 3 Months Social History Tobacco Use Types Packs/Day Years Used Date Smoking Tobacco: Never Assessed Sex and Gender Information Value Date Recorded Sex Assigned at Not on file Gender Identity Not on file Sexual Orientation Not on file Last Filed Vital Signs Vital Sign Reading Time Taken Comments Blood Pressure 115/78 12/10/2023 8:10 AM CDT Pulse 72 12/10/2023 8:10 AM CDT Temperature - - Respiratory Rate - - Oxygen Saturation - - Inhaled Oxygen Concentration - - Weight 73.2 kg (161 lb 6.4 oz) 12/10/2023 8:07 A M CDT shoes on Height - - Body Mass Index - - Plan of Treatment Health Maintenance Due Date Last Done Comments Colon Cancer Screening Plan Due 1960 Hep C Screening (Preventive Services) 1960 PSA Screening Discussion 1960 HIV Screening (Preventive Services) 1978 Adult Preventive Visit 1980 Cholesterol 1997 Zoster/Shingles (2 of 2) 01/30/2020 12/05/2019 DTaP/Tdap/Td (7 - Tdap) 07/18/2026 07/19/19 17, 11/20/1999, 07/24/1975, Additional history exists RSV (1 - 1-dose 75+ series) 2037 IPV (Polio) Completed 12/13/1976, 09/10, 07/24/1975, Additional history exists HepA Aged Out 08/17/2007 No longer eligi ble based on patient's age to complete this topic Pneumococcal Aged Out 12/28/2014, 11/23/1995 No lo nger eligible based on patient's age to complete this topic COVID-19 Vaccine Completed 12/02/2023, , 10/20/2021, Additional history exists Influenza Completed 12/02/2023, 11/09, 12/02/2021, Additional history exists HepB Aged Out No longer eligi ble based on patient's age to complete this topic Hib Aged Out No longer eligi ble based on patient's age to complete this topic RSV Aged Out No longer eligi ble based on patient's age to complete this topic MCV4 Aged Out No longer eligi ble based on patient's age to complete this topic
--- OUTSIDE RECORDS SUMMARY | 2023-12-10 14:52 | XMS_ITS | Encounter Summary ---
Author Organization [facility] Address [address] [place] [address] Care Team Providers Care Research Geologist Name Role Phone Unavailable Primary Care Provider Unavailabl e Reason for Visit * Reason Comments Follow-up Cognition Cognitive issues Medication Questions Right regimen Symptoms Possible neuropathy Encounter Details Date Type Department Care Team ([facility] st Contact Info) Description 12/10/2023 8:00 AM CDT Office Visit [facility] [employer] [place], [place] [id number] Vladimir Buckley MD [address] [place], [place] [address] Parkinson's disease without dyskinesia or fluctuating manifestations (HRC) (Primary Dx); RBD (REM behavioral disorder); Paresthesia of skin; Myalgia Social History Tobacco Use Types Packs/Day Years Used Date Smoking Tobacco: Never Assessed Sex and Gender Information Value Date Recorded Sex Assigned at Not on file Gender Identity Not on file Sexual Orientation Not on file documented as of this encounter Last Filed Vital Signs Vital Sign Reading Time Taken Comments Blood Pressure 115/78 12/10/2023 8:10 AM CDT Pulse 72 12/10/2023 8:10 AM CDT Temperature - - Respiratory Rate - - Oxygen Saturation - - Inhaled Oxygen Concentration - - Weight 73.2 kg (161 lb 6.4 oz) 12/10/2023 8:07 A M CDT shoes on Height - - Body Mass Index - - documented in this encounter Patient Instructions * Patient Instructions* Vladimir Buckley MD - 12/10/2023 8:00 AM CDT Please contact us using [employer] or by calling the [facility] nurse line at [phone]. Two easy ways to stay connected with what is going on at [facility]: If you have not already done so, we encourage you to sign up (for free) to be on our e-mailing list, so that you will receive information about upcoming classes, events, and activities hosted by [facility]! To sign up, simply send an email to [email or web address] indicating that you would like to be included. 2. Follow us on Facebook to learn more about current news and upcoming events. Find us at [facility] [employer]! Learn more about our ongoing [facility] studies here! [email or web address] 1. Continue with the same dose of carbidopa/levodopa, and carbidopa/levodopa CR. May try 2.5 tablets each time to see if the tingling will improve. Alternatively we could try gabapentin. 2. Exercise regularly. 3. Continue using the extended release formulation of melatonin, 10 mg at bedtime for the REM sleepdisorder. 4. Continue taking the sertraline in the morning. 5. Vitamin B12 and vitamin D levels. 6. Follow-up with me in 6 months. documented in this encounter Progress Notes * Vladimir Buckley MD - 12/10/2023 8:00 AM CDT Neurology progess mote. Chief complaint: Follow up of Parkinson's disease. History of present illness: This is a 63-year-old man seen today in follow up of Parkinson's disease. He continues to do well. He takes carbidopa/levodopa 25/100 2 tablets 3 times a day, tries to take it on an empty stomach, but has questions about that, and carbidopa/levodopa CR 50/201 at bedtime. He is not aware of any wearing off phenomena or dyskinesias. He has some tingling that he experiences sometimes it can happen anytime during the day when he is inactive affects primarily in the feet and legs, and sometimes the hands and goes away when he gets up and walks around. He is wondering whether he is developing neuropathy. Denies any cognitive difficulties. Does have some cognitive inefficiencies but he did have prior neuropsychometric testing at [place] which was essentially normal and consistent with cognitive inefficiencies related to Parkinson's disease. He has REM sleep disorder which has not been quite as active lately as it has been in the past. He takes melatonin 10 mg extended release at bedtime for that. He does feel a little sleepy during the day, and sometimes he will wake up in the night and can not go back to sleep. He has some orthostatic hypotension and at times he will have orthostatic dizziness, but he has not had any fainting spells. This only happens if he gets up too fast. He exercisesvigorously and regularly. He sometimes struggles to find the right word, and sometimes he is more forgetful. He is on sertraline who sent which seems to control depression and anxiety reasonably well. He lives independently with his in the private home. He is retired now. I reviewed the past medical and surgical history, family and social history, medications and allergies from the electronic health record. 136/71, 66 sitting, 115/78, 72 standing, 161.4 lb. STM: 4/5. Memory index score: 14/15. UPDRS ADL score: 4 UPDRS motor score: 9. Impression: 1. Parkinson's disease. 2. REM sleep disorder. 3. 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 4. Minimally symptomatic orthostatic hypotension. Discussion: He looks really well both objectively and subjectively. Most of his problems are under control. He still has some breakthrough dream enacting behaviors but he has not been falling out of bed. He has experienced some tingling sensations which are intermittently present and they go away with activities so I suspect that this is a restless legs type phenomenon. We talked about checking a vitamin levels and if they are not abnormal then we can try a little bit more levodopa and see if that helps. If that does not then we can try gabapentin next. The patient has some questions about the medicationhow to take it, the symptoms that he is experiencing, prognosis, the cognitive changes, etcetera which we reviewed in detail today. Recommendations: 1. Continue with the same dose of carbidopa/levodopa, and carbidopa/levodopa CR. May try 2.5 tablets each time to see if the tingling will improve. Alternatively we could try gabapentin. 2. Exercise regularly. 3. Continue using the extended release formulation of melatonin, 10 mg at bedtime for the REM sleepdisorder. 4. Continue taking the sertraline in the morning. 5. Vitamin B12 and vitamin D levels. 6. Follow-up with me in 6 months. Vladimir Buckley MD Time spent 41 min Review of chart (notes, data): 3 min History and examination: 18 min Counselin min Coordination of care: 4 min Documentation: 6 min documented in this encounter Plan of Treatment Not on file documented as of this encounter Visit Diagnoses Diagnosis Parkinson's disease without dyskinesia or fluctuating manifestations (HRC)- Primary RBD (REM behavioral disorder) REM sleep behavior disorder Paresthesia of skin Disturbance of skin sensation Myalgia Mylagia and myositis, unspecified documented in this encounter
--- OUTSIDE RECORDS SUMMARY | 2023-12-10 14:52 | XMS_ITS | Clinical Summary ---
Author Organization [facility] Address [place], [place] [address] Care Team Providers Care Linux Consultant Name Role Phone Scott Stokes MD Primary Care Provider [phone] Allergies No known active allergies Medications Medication [...] Diagnosed Date Routine adult health maintenance 07/20/2013 Overview (07/20/2013): Colonoscopy 07/2013 normal repeat in 10 years [...] for age 50+ (1 of 2) 2012 Colonoscopy through age 75 07/21/202307/20, 07/20/2013 COVID-19 vaccine series ( - season) 2023 10/20/2021 Influenza for age 50-64 10/11/2023 11/18/19 07, [...] CDT) CHOLESTEROL,TOTAL 207(H) 110 - 199 mg/dL [facility] TRIGLYCERIDES 83 <150 mg/dL [facility] HDL CHOLESTEROL 63 >40 mg/dL [facility] CHOL/HDL RATIO 3.29 <4.51 [facility] LDL CHOLESTEROL 127 <131 mg/dL [facility] PATIENT STATUS Fasting [facility] Blood specimen (specimen) BLOOD SPECIMEN / Unknown 11/03/2006 9:01 AM CDT 11/03/2006 8:56 AM CDT Luis Miguel Roman MD CHEMISTRY [facility] [address] [place] [address] from Last 3 Months or Most Recently Relevant to Health Maintenance Care Teams Linux Consultant Relationship Specialty Start Date End Date Scott Stokes MD [address] [place] [address] PCP - General Family Practice 04/30/22
[2023-12-10 16:11] LABS: Vitamin D 25 Hydroxy* 30 ng/mL (30-80)
[2023-12-10 16:43] LABS: Vitamin B12* 298 pg/mL (243-894)
== END 2023-12-10 14:49 | disposition home or self-care (01) ==
LOC: LAB 14:49
PROVIDERS: PCP Family Medicine; Visit Provider Psychiatry & Neurology Neurology
DX: G20.A1 Parkinson's disease without dyskinesia, without mention of fluctuations (principal); G47.52 REM sleep behavior disorder; R20.2 Paresthesia of skin
CPT/HCPCS: 36415; 82306; 82607

== ENCOUNTER 2024-06-02 08:05 | Outpatient (CLI) | payer BC, SELFPAY | END 2024-06-02 08:06 | disposition home or self-care (01) | LOC: NFLDREF 06-05 07:56 | PROVIDERS: PCP Family Medicine; Referring Provider Family Medicine; Visit Provider Family Medicine | DX: E78.5 Hyperlipidemia, unspecified (principal); Z12.5 Encounter for screening for malignant neoplasm of prostate | CPT/HCPCS: 80053; 80061; G0103 ==

== ENCOUNTER 2024-11-02 17:13 | Outpatient (CLI) | payer BC, SELFPAY ==
--- NOTE | 2024-11-02 17:30 | MR_ITS ---
[address] [address] Phone:?[phone] Fax:?[phone] Referring Physician Information: Twin Scruggs M.D. [address] [facility] [address] Phone:?[phone] Fax:?[phone] Patient:Chuck Dee D.O.B:?1960 Sex:?Male Phone:?[phone] [facility] MRN:?[id number] Exam Date:?11/02/2024 EXAM: MRI of the RIGHT KNEE, without contrast CLINICAL INFORMATION: Male, 64 years old, with right knee pain. INDICATION: Evaluate for meniscal tear. PRIOR SURGERY: None reported. PLAIN FILMS: None available. COMPARISONS: No prior MRIs available. TECHNICAL INFORMATION: Using a 1.5T MR scanner and a localizing surface coil: sagittals: PD, PDFS coronals: PD, T2FS axials: PD, PDFS SEDATION: None CONTRAST: None FINDINGS: Knee joint: Effusion: Trace-small right knee effusion. Popliteal cyst: Small, unruptured popliteal (López's) cyst. Loose bodies: None. Subcutaneous and extra-articular soft tissues: Unremarkable. Ligaments: ACL: Intact ACL anteromedial and posterolateral bundles, without sprain or tear. PCL: Intact PCL, without acute or chronic injury. MCL: Intact MCL superficial and deep layers, without injury. LCL: Intact LCL, without injury. However, a 2.2 x 0.3 x 1.0 cm ganglion cyst is located deep to the LCL (coronal STIR series 9 image 18 and axial T2FS series 5 image 17) Posterolateral corner: No posterolateral corner soft tissue injury. Popliteus, biceps femoris, iliotibial band, popliteofibular ligament and lateral gastrocnemius are intact. Posteromedial corner: No posteromedial corner soft tissue injury. Semimembranosus, pes anserine tendons and posterior oblique ligament are without injury, tendinopathy or bursitis. Extensor mechanism: Patellar tendon: Intact, without tendinopathy. Quadriceps tendon: Intact, without tendinopathy. Retinacula: Medial and lateral retinacula are intact. Fat pads: Unremarkable infrapatellar Hoffa's, quadriceps and prefemoral fat pads. Medial compartment: Medial meniscus: No articular surface, meniscosynovial junction or root tear. No displacement, extrusion or parameniscal cyst. Medial femoral condyle & tibial plateau: Broad-based mild grade II chondromalacia throughout the central, weightbearing aspect of the medial compartment, without reactive osseous changes. Minimal marginal osteophytosis. Lateral compartment: Lateral meniscus: Intrasubstance degeneration and ill-defined high-grade tearing of the posterior root measuring 1.2 cm (sagittal PDFS series 7 images 13-16). No meniscal extrusion or parameniscal cyst. Lateral femoral condyle & tibial plateau: Broad-based mild grade II chondromalacia throughout the central, weightbearing aspect of the lateral compartment, with minimal marginal osteophytosis. Patellofemoral joint: Patella: No chondromalacia or osteochondral abnormality. Trochlea: No chondromalacia or osteochondral abnormality. Proximal tibiofibular joint: Unremarkable, without evidence of ligament sprain injury, joint effusion or adjacent marrow edema. Bones: No stress/occult fractures or other marrow edema/pathology. IMPRESSION: 1. Intrasubstance degeneration and ill-defined high-grade tearing of the lateral meniscal posterior measuring 1.2 cm. 2. 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 3. Trace-small knee joint effusion with a small, unruptured popliteal (López's) cyst. 4. No cruciate or collateral ligament sprain/tear. However, there is a slender ganglion cyst deep to the LCL measuring 2.2 x 0.3 x 1.0 cm. 5. No medial meniscal tear. 6. No osteochondral abnormality of the patellofemoral compartment. BC Electronically signed on 11/03/2024 7:59:00 AM by Panchito Kilgore M.D.
== END 2024-11-02 17:14 | disposition home or self-care (01) ==
LOC: MRI 17:14
PROVIDERS: PCP Family Medicine; Visit Provider Orthopaedic Surgery
DX: M25.561 Pain in right knee (principal); S83.281A Other tear of lateral meniscus, current injury, right knee, initial encounter; M17.11 Unilateral primary osteoarthritis, right knee; M25.451 Effusion, right hip
CPT/HCPCS: 73721